=== PATIENT | male | born 1950 | race Caucasian/White ===

== ENCOUNTER → 2021-10-27 | Outpatient (CLI) | payer MEDICARE ==
[~2021-10-27] MED LIST: CEFUROXIME500 MG PO; NORVASC10 MG PO; TESSALON PERLE100 MG PO
== END ==
LOC: RT 13:31
DX: I10 Essential (primary) hypertension (principal); R94.31 Abnormal electrocardiogram [ECG] [EKG]; I45.10 Unspecified right bundle-branch block
CPT/HCPCS: 93005

== ENCOUNTER → 2022-03-16 | Outpatient (CLI) | payer MEDICARE | LOC: KOH-I 09:02 | DX: M25.572 Pain in left ankle and joints of left foot (principal); M79.672 Pain in left foot; M19.072 Primary osteoarthritis, left ankle and foot; M21.172 Varus deformity, not elsewhere classified, left ankle | CPT/HCPCS: 73610; 73630 ==

== ENCOUNTER → 2022-04-01 | Outpatient (CLI) | payer MEDICARE | LOC: CT 09:38 | DX: N40.0 Benign prostatic hyperplasia without lower urinary tract symptoms (principal); R31.9 Hematuria, unspecified; Z85.038 Personal history of other malignant neoplasm of large intestine; Z87.891 Personal history of nicotine dependence | CPT/HCPCS: 36415; 82565; 84520; Q9967 ==

== ENCOUNTER → 2022-04-23 | Outpatient (CLI) | payer MEDICARE | LOC: MRI 15:00 | DX: E27.9 Disorder of adrenal gland, unspecified (principal) | CPT/HCPCS: 74183; A9577 ==